=== PATIENT | female | born 1985 | race Caucasian/White ===

== ENCOUNTER 2016-04-24 10:07 | Outpatient (CLI) | payer OTHER | END 2016-04-24 10:08 | disposition home or self-care (01) | DX: N20.0 Calculus of kidney (principal) ==

== ENCOUNTER 2016-05-03 11:06 | Outpatient (CLI) | payer OTHER | END 2016-05-03 11:07 | disposition home or self-care (01) | DX: E78.9 Disorder of lipoprotein metabolism, unspecified (principal); E03.9 Hypothyroidism, unspecified ==

== ENCOUNTER 2016-11-03 16:00 | Outpatient (CLI) | payer OTHER | END 2016-11-03 16:01 | disposition home or self-care (01) | LOC: LAB.R 16:00 | PROVIDERS: ATTEND Family Medicine | DX: R31.9 Hematuria, unspecified (principal) | CPT/HCPCS: 87077; 87086 ==

== ENCOUNTER 2016-11-09 08:00 | Outpatient (CLI) | payer OTHER ==
[2016-11-09 19:39] LABS: BASOPHILS # (AUTO) 0.1 10^3/uL (0.0-0.1); BASOPHILS % (AUTO) 0.9 %; EOSINOPHILS # (AUTO) 0.2 10^3/uL (0.0-0.7); EOSINOPHILS % (AUTO) 1.6 %; HCT - HEMATOCRIT 42.6 % (37.0-47.0); HGB - HEMOGLOBIN 14.5 g/dL (12.0-16.0); LYMPHOCYTES # (AUTO) 2.3 10^3/uL (1.5-3.5); LYMPHOCYTES % (AUTO) 24.2 %; MEAN CORPUSCULAR HEMOGLOBIN 31.4 pg (27.0-31.0); MEAN CORPUSCULAR VOLUME 92.2 fL (81.0-99.0); MEAN PLATELET VOLUME 8.9 fL (7.9-10.8); MONOCYTES # (AUTO) 0.7 10^3/uL (0.0-1.0); MONOCYTES % (AUTO) 7.2 %; NEUTROPHILS # (AUTO) 6.3 10^3/uL (1.5-6.6); NEUTROPHILS % (AUTO) 66.1 %; RED BLOOD COUNT 4.62 10^6/uL (4.20-5.40); RED CELL DISTRIBUTION WIDTH 13.1 % (12.0-15.0); UNCORRECTED WHITE BLOOD COUNT 9.5 x10^3/uL; WHITE BLOOD COUNT 9.5 x10^3/uL (4.8-10.8)
== END 2016-11-09 23:59 | disposition home or self-care (01) ==
LOC: LAB.WCP 08:00
PROVIDERS: ATTEND Family Medicine
DX: I47.1 Supraventricular tachycardia (principal)
CPT/HCPCS: 36415; 84443; 84703; 85025

== ENCOUNTER 2018-04-03 09:36 | Outpatient (CLI) | payer OTHER ==
[2018-04-03 12:58] LABS: ALBUMIN/GLOBULIN RATIO 1.3 (1.0-2.2); ALKALINE PHOSPHATASE 52 IU/L (42-121); ALT ALANINE AMINOTRANSFERASE 17 IU/L (10-60); AST ASPARTATE AMINOTRANSFERASE 19 IU/L (10-42); BILIRUBIN,TOTAL 0.6 mg/dL (0.2-1.0); BUN - BLOOD UREA NITROGEN 11 mg/dL (6-20); CALCIUM 9.1 mg/dL (8.5-10.3); CARBON DIOXIDE - CO2 24 mmol/L (21-32); CHLORIDE 103 mmol/L (101-111); CHOL/HDL RATIO 5.6 (<4.4); CHOLESTEROL 235 mg/dL; CREATININE 0.7 mg/dL (0.4-1.0); GFR - MDRD 97 (>89); GLUCOSE 91 mg/dL (70-100); HDL CHOLESTEROL 42 mg/dL; LDL CHOLESTEROL,CALCULATED 173 mg/dL; LDL/HDL RATIO 4.1 (<4.4); SODIUM 136 mmol/L (135-145); TOTAL PROTEIN 7.2 g/dL (6.7-8.2); VLDL CHOLESTEROL 20 mg/dL
[2018-04-03 13:01] LABS: BASOPHILS % (AUTO) 0.4 %; EOSINOPHILS # (AUTO) 0.1 10^3/uL (0.0-0.7); EOSINOPHILS % (AUTO) 0.9 %; HGB - HEMOGLOBIN 13.6 g/dL (12.0-16.0); LYMPHOCYTES # (AUTO) 2.3 10^3/uL (1.5-3.5); LYMPHOCYTES % (AUTO) 21.3 %; MEAN CORPUSCULAR HEMOGLOBIN 31.1 pg (27.0-31.0); MEAN CORPUSCULAR HGB CONC 34.5 g/dL (32.0-36.0); MEAN CORPUSCULAR VOLUME 90.3 fL (81.0-99.0); MEAN PLATELET VOLUME 8.8 fL (7.9-10.8); MONOCYTES # (AUTO) 0.6 10^3/uL (0.0-1.0); MONOCYTES % (AUTO) 5.4 %; NEUTROPHILS # (AUTO) 7.7 10^3/uL (1.5-6.6); PLT - PLATELET COUNT 346 10^3/uL (130-450); RED BLOOD COUNT 4.36 10^6/uL (4.20-5.40); RED CELL DISTRIBUTION WIDTH 12.3 % (12.0-15.0); WHITE BLOOD COUNT 10.7 x10^3/uL (4.8-10.8)
== END 2018-04-03 23:59 | disposition home or self-care (01) ==
LOC: LAB.WCP 09:36
PROVIDERS: ATTEND Nurse Practitioner
DX: Z00.00 Encounter for general adult medical examination without abnormal findings (principal); E78.5 Hyperlipidemia, unspecified; E03.9 Hypothyroidism, unspecified
CPT/HCPCS: 36415; 80053; 80061; 83721; 84443; 85025

== ENCOUNTER 2019-02-26 08:00 | Outpatient (CLI) | payer BC | END 2019-02-26 23:59 | disposition home or self-care (01) | LOC: LAB.R 08:00 | PROVIDERS: ATTEND Physician Assistant | DX: R30.0 Dysuria (principal) | CPT/HCPCS: 87086; 87181 ==

== ENCOUNTER 2020-02-27 08:00 | Outpatient (CLI) | payer BC, OTHER ==
[2020-02-27 18:05] LABS: BASOPHILS # (AUTO) 0.1 10^3/uL (0.0-0.1); BASOPHILS % (AUTO) 0.4 %; EOSINOPHILS % (AUTO) 0.3 %; HCT - HEMATOCRIT 39.8 % (37.0-47.0); HGB - HEMOGLOBIN 13.3 g/dL (12.0-16.0); LYMPHOCYTES # (AUTO) 2.5 10^3/uL (1.5-3.5); LYMPHOCYTES % (AUTO) 17.7 %; MEAN CORPUSCULAR HEMOGLOBIN 30.8 pg (27.0-31.0); MEAN CORPUSCULAR HGB CONC 33.4 g/dL (32.0-36.0); MEAN CORPUSCULAR VOLUME 92.1 fL (81.0-99.0); MEAN PLATELET VOLUME 10.4 fL (7.9-10.8); MONOCYTES # (AUTO) 0.8 10^3/uL (0.0-1.0); MONOCYTES % (AUTO) 5.5 %; NEUTROPHILS # (AUTO) 10.5 10^3/uL (1.5-6.6); NEUTROPHILS % (AUTO) 75.6 %; PLT - PLATELET COUNT 369 10^3/uL (130-450); RED BLOOD COUNT 4.32 10^6/uL (4.20-5.40); RED CELL DISTRIBUTION WIDTH 12.3 % (12.0-15.0); WHITE BLOOD COUNT 13.9 x10^3/uL (4.8-10.8)
[2020-02-27 19:00] LABS: ALBUMIN 4.5 g/dL (3.2-5.5); ALBUMIN/GLOBULIN RATIO 1.3 (1.0-2.2); BILIRUBIN,TOTAL 0.4 mg/dL (0.2-1.0); CALCIUM 9.5 mg/dL (8.5-10.3); CREATININE 0.7 mg/dL (0.4-1.0); POTASSIUM 3.9 mmol/L (3.5-5.0); TOTAL PROTEIN 8.1 g/dL (6.7-8.2)
[2020-02-27 19:09] LABS: THYROID STIMULATING HORMONE 2.03 uIU/mL (0.34-5.60)
== END 2020-02-27 23:59 | disposition home or self-care (01) ==
LOC: LAB.WCP 08:00
PROVIDERS: ATTEND Nurse Practitioner
DX: K21.9 Gastro-esophageal reflux disease without esophagitis (principal); N20.0 Calculus of kidney; E03.9 Hypothyroidism, unspecified
CPT/HCPCS: 36415; 80053; 84443; 85025

== ENCOUNTER 2020-07-12 07:00 | Outpatient (CLI) | payer OTHER | END 2020-07-12 23:59 | disposition home or self-care (01) | LOC: LAB.R 07:00 | PROVIDERS: ATTEND Nurse Practitioner | DX: N39.0 Urinary tract infection, site not specified (principal) | CPT/HCPCS: 87086; 87181 ==

== ENCOUNTER 2020-07-20 16:45 | Outpatient (CLI) | payer OTHER | END 2020-07-20 16:46 | disposition home or self-care (01) | LOC: LAB.N 16:45 | PROVIDERS: ATTEND Family Medicine | DX: N39.0 Urinary tract infection, site not specified (principal) | CPT/HCPCS: 87086 ==

== ENCOUNTER 2020-07-22 01:20 | Emergency (ER) | payer OTHER ==
--- OUTSIDE RECORDS SUMMARY | 2020-07-22 01:28 | EXTERNAL MEDICAL SUMMARY RPT | Continuity of Care Document ---
:1985 Demographics Phone Unavailable Preferred Language Unknown Marital Status Unknown Congregational Affiliation Unknown Race Unknown Ethnic Group Unknown Author Organization [facility] Address [address] [id number] Phone Social History date description facility [phone]
--- NOTE | 2020-07-22 02:03 | ED Physician Documentation ---
PD HPI ABD PAIN - Stated complaint Stated Complaint: L SIDE AB PX - Chief complaint Chief Complaint: Abd Pain - History obtained from History obtained from: Patient - History of Present Illness Timing - onset: Enter time (20:00), Today Timing - details: Abrupt onset Pain level max: 8 Pain level now: 2 Quality: Sharp Location: LLQ Radiation: Left flank Improved by: Other (nothing) Worsened by: Other (no exacerbating factors) Associated symptoms: Nausea, Vomiting, Dysuria. No: Fever Similar symptoms before: Diagnosis (renal colic) Recently seen: Clinic - Additional information Additional information: patient complaints of sudden onset left back pain that begin at approximately 8 PM tonight. Pain has been waxing and waning, and has gradually migrated location to the left flank and then to the left lower quadrant. The pain, when at its most severe, has been associated with nausea and vomiting. while awaiting evaluation, the pain and nausea have significantly improved, and at this point she says she is only needing an anti-nausea medication. patient also notes that she developed symptoms of a urinary tract infection two weeks ago. Specifically, she developed urinary urgency, and burning dysuria. She was evaluated in a clinic for this and was prescribed an antibiotic, she cannot recall which one. However, she says her symptoms did not resolve, and does she was reevaluated yesterday. She has a urine culture pending. She was prescribed Cipro, and has only taken one dose thus far. Review of Systems Constitutional: reports: Reviewed and negative GI: reports: Nausea, Vomiting. denies: Abdominal Pain : reports: Dysuria. denies: Frequency, Hematuria, Now EGA Musculoskeletal: reports: Back pain PD PAST MEDICAL HISTORY - Past Medical History Past Medical History: Yes GI: GI bleed, Ulcers : Kidney stones - Past Surgical History Past Surgical History: No - Present Medications Home Medications: Ambulatory Orders Medication Instructions Recorded Confirmed Levothyroxine [Synthroid] 88 mcg PO DAILY 08/30/14 07/22/20 Tamsulosin [Flomax] 0.4 mg PO DAILY #7 capsule 08/31/14 07/22/20 Ciprofloxacin HCl [Cipro] 250 mg PO DAILY 07/22/20 07/22/20 Ondansetron Odt [Zofran] 4 mg TL Q6H PRN #10 tablet 07/22/20 Tamsulosin [Flomax] 0.4 mg PO DAILY #5 07/22/20 - Allergies Allergies/Adverse Reactions: Allergies Allergy/AdvReac Type Severity Reaction Status Date / Time NSAIDS (Non-Steroidal AdvReac Mild Cramps Verified 07/22/20 01:31 Anti-Inflamma - Social History Does the pt smoke?: No Smoking Status: Never smoker Does the pt drink ETOH?: Yes Does the pt have substance abuse?: No - Immunizations Immunizations are current?: Yes - POLST Patient has POLST: No PD ED PE NORMAL - Vitals Vital signs reviewed: Yes - General General: Alert and oriented X 3, No acute distress, Well developed/nourished - Abdomen Abdomen: Soft, Non tender - Back Back: No CVA TTP Results - Vitals Vitals: Vital Signs - 24 hr 07/22/20 07/22/20 01:20 03:00 Temperature 36.9 C 36.7 C Heart Rate 78 82 Respiratory 16 18 Rate Blood Pressure 153/85 H 141/87 H O2 Saturation 98 97 Oxygen O2 Source Room air PD MEDICAL DECISION MAKING - ED course Complexity details: reviewed old records, considered differential, d/w patient ED course: patient presents with symptoms that she says are strongly reminiscent of previous episodes of renal colic. She is in no distress on my evaluation, and reports her pain has nearly resolved by the time of this evaluation. She says she would prefer to avoid testing, specifically CT scan, as she is confident that this is no different than previous episodes of renal colic, and citing concerns regarding the cost. I agree that it is reasonable to not perform CT at this time. it is also of potential concern that she was recently diagnosed with a urinary tract infection, although she is afebrile, and has no CVA tenderness on exam. She is given a dose of IM Rocephin to minimize likelihood of complication of UTI in the setting of ureterolithiasis. as she has a urine culture pending, I did not see cause for performing urinalysis at this time. Departure - Departure Disposition: 01 Home, Self Care Clinical Impression: Renal colic Condition: Good Instructions: ED Stone Renal W Colic Prescriptions: Tamsulosin [Flomax] 0.4 mg PO DAILY #5 Ondansetron Odt [Zofran] 4 mg TL Q6H PRN #10 tablet PRN Reason: Nausea / Vomiting Comments: As we discussed, because your symptoms are consistent with your previous ep isodes of kidney stones, no tests were performed tonight. You indicate that you were recently diagnosed with a urinary tract infection, and that a culture result is pending. I recommend that you take the antibiotic that was prescribed by the outpatient physician (Montez), but you were also given an injection of ceftriaxone in the ER tonight to try to speed up the elimination of any urinary tract infection you might have. Also, as we discussed, the combination of urinary tract infection and kidney stone can lead to a dangerous infection, which would be indicated by fevers, chills, sweats, worsening pain (particularly flank or back pain); if you develop any of these signs or symptoms, you should return to the ER for reevaluation Discharge Date/Time: 07/22/20 03:00
[2020-07-22] MEDS ORDERED: LIDOCAINE 1% 2 ML VIAL MC ONE (02:38)
[2020-07-22] MEDS ORDERED: cefTRIAXone 1 GM VIAL IM STA (02:38)
[2020-07-22] MEDS ORDERED: TAMSULOSIN 0.4 MG CAPSULE PO STA (02:38)
[2020-07-22] MEDS ORDERED: ONDANSETRON ODT 4 MG TABLET TL STA (02:38)
[2020-07-22 03:02] VITALS: BP 141/87
== END 2020-07-22 03:00 | disposition home or self-care (01) ==
LOC: ED 01:20
DX: N20.1 Calculus of ureter (principal); Z87.442 Personal history of urinary calculi; N39.0 Urinary tract infection, site not specified
CPT/HCPCS: 99283; A9270; Q0162

== ENCOUNTER 2021-04-15 14:30 | Outpatient (CLI) | payer OTHER | END 2021-04-15 23:59 | disposition home or self-care (01) | LOC: LAB.WCP 14:30 | PROVIDERS: ATTEND Physician Assistant | DX: R05.1 Acute cough (principal); Z20.822 Contact with and (suspected) exposure to COVID-19 ==

== ENCOUNTER 2021-06-24 12:05 | Outpatient (CLI) | payer BC ==
--- NOTE | 2021-06-24 12:53 | XRAY Report ---
PROCEDURE: Elbow 2 View LT INDICATIONS: ELBOW JOINT PAIN, LEFT TECHNIQUE: 2 views of the elbow were acquired. COMPARISON: None FINDINGS: Bones: No fractures or dislocations. No suspicious bony lesions. Soft tissues: No elbow joint effusion. No suspicious soft tissue calcifications. IMPRESSION: Unremarkable radiographic examination of left elbow. Reviewed by: Los Edouard MD on 06/24/2021 12:51 PM PDT Approved by: Los Edouard MD on 06/24/2021 12:51 PM PDT Station ID: [id number]
--- NOTE | 2021-06-24 12:54 | XRAY Report ---
PROCEDURE: Hand 2 View LT INDICATIONS: HAND PAIN, LEFT TECHNIQUE: 2 views of the hand(s) acquired. COMPARISON: None FINDINGS: Bones: No fractures or dislocations. No bony erosive changes. Joint spaces are well preserved. No s uspicious bony lesions. Soft tissues: No suspicious soft tissue calcifications. IMPRESSION: Unremarkable radiographic examination of left hand. Reviewed by: Los Edouard MD on 06/24/2021 12:52 PM PDT Approved by: Los Edouard MD on 06/24/2021 12:52 PM PDT Station ID: [id number]
== END 2021-06-24 12:06 | disposition home or self-care (01) ==
LOC: DI.N 12:05
PROVIDERS: ATTEND Physician Assistant
DX: M25.522 Pain in left elbow (principal); M79.642 Pain in left hand; M25.50 Pain in unspecified joint
CPT/HCPCS: 36415; 84550; 85027; 85651; 86038; 86140; 86200; 86225; 86430

== ENCOUNTER 2021-06-24 12:12 | Outpatient (CLI) | payer BC ==
[2021-06-24 17:45] LABS: HCT - HEMATOCRIT 38.2 % (37.0-47.0); HGB - HEMOGLOBIN 12.8 g/dL (12.0-16.0); MEAN CORPUSCULAR HEMOGLOBIN 29.4 pg (27.0-31.0); MEAN CORPUSCULAR HGB CONC 33.5 g/dL (32.0-36.0); MEAN CORPUSCULAR VOLUME 87.6 fL (81.0-99.0); MEAN PLATELET VOLUME 10.7 fL (7.9-10.8); RED BLOOD COUNT 4.36 10^6/uL (4.20-5.40); RED CELL DISTRIBUTION WIDTH 12.8 % (12.0-15.0); WHITE BLOOD COUNT 13.6 x10^3/uL (4.8-10.8)
[2021-06-24 18:41] LABS: URIC ACID 5.6 mg/dL (2.6-7.2)
[2021-06-24 19:14] LABS: CRP - C-REACTIVE PROTEIN < 1.0 mg/dL (0-1.0)
[2021-06-24 19:29] LABS: RHEUMATOID FACTOR NEGATIVE (Negative)
[2021-06-27 12:36] LABS: ANA SCREEN NEGATIVE (NEGATIVE)
[2021-06-28 13:26] LABS: DNA (DS) ANTIBODY 2 IU/mL
[2021-06-28 18:02] LABS: CYCLIC CITRULL PEPTIDE CCP IGG <16 UNITS
== END 2021-06-24 12:13 | disposition home or self-care (01) ==
LOC: LAB.N 12:12
PROVIDERS: ATTEND Physician Assistant
DX: M25.50 Pain in unspecified joint (principal)
CPT/HCPCS: 36415; 84550; 85027; 85651; 86038; 86140; 86200; 86225; 86430

== ENCOUNTER 2022-05-20 12:53 | Outpatient (CLI) | payer OTHER ==
[2022-05-20 13:17] LABS: BASOPHILS # (AUTO) 0.1 10^3/uL (0.0-0.1); BASOPHILS % (AUTO) 0.6 %; EOSINOPHILS # (AUTO) 0.1 10^3/uL (0.0-0.7); EOSINOPHILS % (AUTO) 1.2 %; HCT - HEMATOCRIT 37.8 % (37.0-47.0); HGB - HEMOGLOBIN 12.1 g/dL (12.0-16.0); LYMPHOCYTES # (AUTO) 2.7 10^3/uL (1.5-3.5); LYMPHOCYTES % (AUTO) 26.8 %; MEAN CORPUSCULAR HEMOGLOBIN 27.4 pg (27.0-31.0); MEAN CORPUSCULAR VOLUME 85.5 fL (81.0-99.0); MEAN PLATELET VOLUME 10.1 fL (7.9-10.8); MONOCYTES # (AUTO) 0.5 10^3/uL (0.0-1.0); MONOCYTES % (AUTO) 5.2 %; NEUTROPHILS # (AUTO) 6.5 10^3/uL (1.5-6.6); PLT - PLATELET COUNT 462 10^3/uL (130-450); RED BLOOD COUNT 4.42 10^6/uL (4.20-5.40); RED CELL DISTRIBUTION WIDTH 13.9 % (12.0-15.0); WHITE BLOOD COUNT 9.9 x10^3/uL (4.8-10.8)
[2022-05-20 13:33] LABS: ALBUMIN 4.1 g/dL (3.2-5.5); ALKALINE PHOSPHATASE 68 IU/L (42-121); ALT ALANINE AMINOTRANSFERASE 14 IU/L (10-60); AST ASPARTATE AMINOTRANSFERASE 16 IU/L (10-42); BILIRUBIN,TOTAL 0.5 mg/dL (0.2-1.0); BUN - BLOOD UREA NITROGEN 17 mg/dL (6-20); CALCIUM 9.2 mg/dL (8.5-10.3); CARBON DIOXIDE - CO2 21 mmol/L (21-32); CHLORIDE 103 mmol/L (101-111); CHOL/HDL RATIO 7.2 (<4.4); CHOLESTEROL 268 mg/dL; CREATININE 0.9 mg/dL (0.4-1.0); GFR - MDRD 71 (>89); GLUCOSE 96 mg/dL (70-100); HDL CHOLESTEROL 37 mg/dL; LDL CHOLESTEROL,CALCULATED 189 mg/dL; LDL/HDL RATIO 5.1 (<4.4); POTASSIUM 4.1 mmol/L (3.5-5.0); SODIUM 134 mmol/L (135-145); TOTAL PROTEIN 8.4 g/dL (6.7-8.2); TRIGLYCERIDES 208 mg/dL; VLDL CHOLESTEROL 42 mg/dL
[2022-05-20 13:44] LABS: THYROID STIMULATING HORMONE 1.1 uIU/mL (0.34-5.60)
== END 2022-05-20 12:54 | disposition home or self-care (01) ==
LOC: LAB 12:53
PROVIDERS: ATTEND Physician Assistant
DX: D64.9 Anemia, unspecified (principal); E78.5 Hyperlipidemia, unspecified; E03.9 Hypothyroidism, unspecified
CPT/HCPCS: 36415; 80053; 80061; 83721; 84443; 85025

== ENCOUNTER 2022-07-12 14:50 | Outpatient (CLI) | payer OTHER | END 2022-07-12 14:51 | disposition home or self-care (01) | LOC: DI 14:50 | PROVIDERS: ATTEND Physician Assistant | DX: R06.09 Other forms of dyspnea (principal) | CPT/HCPCS: 93306 ==

== ENCOUNTER 2023-06-05 08:19 | Outpatient (CLI) | payer OTHER ==
[2023-06-05 12:24] LABS: BASOPHILS # (AUTO) 0.1 10^3/uL (0.0-0.1); BASOPHILS % (AUTO) 0.5 %; EOSINOPHILS # (AUTO) 0.2 10^3/uL (0.0-0.7); EOSINOPHILS % (AUTO) 1.6 %; HCT - HEMATOCRIT 41.6 % (37.0-47.0); HGB - HEMOGLOBIN 13.1 g/dL (12.0-16.0); LYMPHOCYTES # (AUTO) 2.6 10^3/uL (1.5-3.5); LYMPHOCYTES % (AUTO) 25.9 %; MEAN CORPUSCULAR HEMOGLOBIN 27.6 pg (27.0-31.0); MEAN CORPUSCULAR HGB CONC 31.5 g/dL (32.0-36.0); MEAN CORPUSCULAR VOLUME 87.8 fL (81.0-99.0); MEAN PLATELET VOLUME 10.3 fL (7.9-10.8); MONOCYTES # (AUTO) 0.5 10^3/uL (0.0-1.0); MONOCYTES % (AUTO) 5.2 %; NEUTROPHILS # (AUTO) 6.7 10^3/uL (1.5-6.6); NEUTROPHILS % (AUTO) 66.6 %; PLT - PLATELET COUNT 443 10^3/uL (130-450); RED BLOOD COUNT 4.74 10^6/uL (4.20-5.40); RED CELL DISTRIBUTION WIDTH 14.6 % (12.0-15.0); WHITE BLOOD COUNT 10.1 x10^3/uL (4.8-10.8)
[2023-06-05 12:50] LABS: % IRON SATURATION 17 % (20-50); ALBUMIN 4.2 g/dL (3.2-5.5); ALBUMIN/GLOBULIN RATIO 1.2 (1.0-2.2); ALKALINE PHOSPHATASE 66 IU/L (42-121); ALT ALANINE AMINOTRANSFERASE 14 IU/L (10-60); AST ASPARTATE AMINOTRANSFERASE 14 IU/L (10-42); BILIRUBIN,TOTAL 0.4 mg/dL (0.2-1.0); BUN - BLOOD UREA NITROGEN 14 mg/dL (6-20); CALCIUM 9.8 mg/dL (8.5-10.3); CARBON DIOXIDE - CO2 25 mmol/L (21-32); CHLORIDE 104 mmol/L (101-111); CHOL/HDL RATIO 5.1 (<4.4); CHOLESTEROL 172 mg/dL; CREATININE 0.8 mg/dL (0.6-1.3); GFR - MDRD 81 (>89); GLUCOSE 92 mg/dL (74-104); HDL CHOLESTEROL 34 mg/dL; IRON 61 ug/dL (50-212); LDL CHOLESTEROL,CALCULATED 94 mg/dL; LDL/HDL RATIO 2.8 (<4.4); SODIUM 137 mmol/L (135-145); TOTAL IRON BINDING CAPACITY 365 ug/dL (250-450); TOTAL PROTEIN 7.7 g/dL (6.4-8.9); TRANSFERRIN 261 mg/dL (203-362); TRIGLYCERIDES 219 mg/dL (48-352); VLDL CHOLESTEROL 44 mg/dL
[2023-06-05 12:55] LABS: THYROID STIMULATING HORMONE 2.42 uIU/mL (0.34-5.60)
[2023-06-05 12:57] LABS: FERRITIN 14.5 ng/mL (11.0-306.8)
== END 2023-06-05 08:20 | disposition home or self-care (01) ==
LOC: LAB.N 08:19
PROVIDERS: ATTEND Physician Assistant
DX: D50.9 Iron deficiency anemia, unspecified (principal); Z13.9 Encounter for screening, unspecified
CPT/HCPCS: 36415; 80053; 80061; 82728; 83540; 83721; 84443; 84466; 85025